=== PATIENT | male | born 1995 | race Caucasian/White ===

== ENCOUNTER 2024-01-24 18:31 | Emergency (ER) | payer SELFPAY ==
[2024-01-24 19:48] LABS: SARS-CoV-2 Antigen CONTROL BLUE LINE VIS/BG OK; SARS-CoV-2 Antigen Rapid Res Negative (Negative)
--- NOTE | 2024-01-24 19:51 | ER ---
Nurse's Notes [facility] Name: Jose Levi Age: 28 yrs Sex: Male : 1995 Arrival Date: 01/24/2024 Time: 18:31 Bed IW2 Private MD: Diagnosis: Acute upper respiratory infection, unspecified Presentation: 01/23 19:15 Chief complaint: Patient states: i think i have strep throat and it started yesterday. bm8 Coronavirus screen: At this time, the client does not indicate any symptoms associated with coronavirus-19. Ebola Screen: No symptoms or risks identified at this time. Initial Sepsis Screen: Does the patient meet any 2 criteria? No. Patient's initial sepsis screen is negative. Does the patient have a suspected source of infection? No. Patient's initial sepsis screen is negative. Risk Assessment: Do you want to hurt yourself or someone else? Patient reports no desire to harm self or others. Onset of symptoms was January 23, 2024. 19:15 Method Of Arrival: Ambulatory bm8 19:15 Acuity: WILNER 4 bm8 Triage Assessment: 19:16 General: Appears in no apparent distress. comfortable, Behavior is calm, cooperative, bm8 appropriate for age. Pain: Complains of pain in throat Pain currently is 3 out of 10 on a pain scale. Quality of pain is described as burning. EENT: Throat is reddened has enlarged tonsils bilaterally with gag reflex present, Reports nasal congestion and sore throat. Neuro: No deficits noted. Cardiovascular: No deficits noted. Respiratory: No deficits noted. GI: No deficits noted. : No deficits noted. Derm: No deficits noted. Musculoskeletal: No deficits noted. Historical: - Allergies: 19:16 No Known Allergies; bm8 - Home Meds: 19:16 None [Active]; bm8 - PMHx: 19:16 None; bm8 - PSHx: 19:16 None; bm8 - Immunization history:: Adult Immunizations unknown. - Infectious Disease History:: Denies. - Social history:: Smoking status: Patient denies any tobacco usage or history of. Screenin:34 [facility] ED Fall Risk Assessment (Adult) History of falling in the last 3 months, bm8 including since admission No falls in past 3 months (0 pts) Confusion or Disorientation No (0 pts) Intoxicated or Sedated No (0 pts) Impaired Gait No (0 pts) Mobility Assist Device Used No (0 pt) Altered Elimination No (0 pt) Score/Fall Risk Level 0 - 2 = Low Risk Oriented to surroundings, Maintained a safe environment, Educated pt \T\ family on fall prevention, incl call for assistance when getting out of bed, Assessed \T\ reinforced patient's understanding of fall precautions, Hourly rounding (assess needs \T\ fall precautionary measures) done, Used ambulatory aids as needed (educated on \T\ assisted with), Used gait belt as appropriate. Abuse screen: Denies threats or abuse. Nutritional screening: No deficits noted. Tuberculosis screening: No symptoms or risk factors identified. Assessment: 19:34 Reassessment: see triage note. Respiratory: Airway is patent Trachea midline bm8 Respiratory effort is even, unlabored, Respiratory pattern is regular, symmetrical. 19:56 Reassessment: Patient appears in no apparent distress at this time. No changes from bm8 previously documented assessment. Patient and/or family updated on plan of care and expected duration. Pain level reassessed. Patient is alert, oriented x 3, equal unlabored respirations, skin warm/dry/pink. 19:57 Respiratory: Breath sounds are clear bilaterally. bm8 Vital Signs: 19:15 BP 107 / 72; Pulse 96; Resp 18; Temp 98.6; Pulse Ox 100% ; Weight 68.04 kg; Height 6 bm8 ft. 0 in. ; Pain 3/10; 19:55 BP 110 / 74; Pulse 95; Resp 17; Temp 98.6; Pulse Ox 100% ; Pain 3/10; bm8 19:15 Body Mass Index 20.34 (68.04 kg, 182.88 cm) bm8 19:15 Pain Scale: Adult bm8 19:55 Pain Scale: Adult bm8 ED Course: 18:35 Patient arrived in ED. mr 18:37 [facility]C [facility] kb 18:37 Silvana Alexander MD is Attending Physician. kb 19:14 Sonu Nolasco, RN is Primary Nurse. bm8 19:16 Triage completed. bm8 19:17 Arm band placed on left wrist. bm8 19:34 Patient has correct armband on for positive identification. Client placed on continuous bm8 cardiac and pulse oximetry monitoring. NIBP monitoring applied. Pulse ox on. NIBP on. 19:34 No provider procedures requiring assistance completed. COVID swab sent to lab. Flu bm8 and/or RSV swab sent to lab. Strep swab sent to lab. Patient did not have IV access during this emergency room visit. 19:56 Provided Education on: post er care. bm8 Administered Medications: No medications were administered Medication: 19:34 VIS not applicable for this client. bm8 Outcome: 19:51 Discharge ordered by . amanda 19:56 Discharged to home ambulatory, bm8 19:56 Condition: stable 19:56 Discharge instructions given to patient, Instructed on discharge instructions, follow up and referral plans. safety practices, Demonstrated understanding of instructions, follow-up care, medications, 19:57 Patient left the ED. bm8 Signatures: Dori Anderson, CURB MACHINE OPERATOR-C CURB MACHINE OPERATOR-Dyan De Luna, Reg Reg Sonu Nolasco, RN RN bm8
--- NOTE | 2024-01-24 19:51 | EDPHYS ---
Physician Documentation [facility] Name: Jose Levi Age: 28 yrs Sex: Male : 1995 Arrival Date: 01/24/2024 Time: 18:31 Bed IW2 Private MD: ED Physician Silvana Alexander HPI: 01/23 18:55 This 28 yrs old Male presents to ER via Unassigned with complaints of Sore Throat, kb Fever, Congestion. 18:55 Pt is a 28 year old male who presents for cough, congestion, subjective fever and sore kb throat that started yesterday and has progressively gotten worse. No alleviating or aggravating factors. . Historical: - Allergies: 19:16 No Known Allergies; bm8 - Home Meds: 19:16 None [Active]; bm8 - PMHx: 19:16 None; bm8 - PSHx: 19:16 None; bm8 - Immunization history:: Adult Immunizations unknown. - Infectious Disease History:: Denies. - Social history:: Smoking status: Patient denies any tobacco usage or history of. ROS: 18:56 Constitutional: As per HPI kb Exam: 18:56 Constitutional: This is a well developed, well nourished patient who is awake, alert, kb and in no acute distress. Head/Face: Normocephalic, atraumatic. Cardiovascular: Regular rate Respiratory: Respirations even and unlabored. No increased work of breathing. Talking in full sentences Skin: Warm, dry with normal turgor. Normal color. MS/ Extremity: Pulses equal, no cyanosis. Neurovascular intact. Full, normal range of motion. Neuro: Awake and alert, GCS 15, oriented to person, place, time, and situation. Moves all extremities. Normal gait. 18:56 ENT: Posterior pharynx: Airway: normal, Tonsils: with erythema, Uvula: normal, midline, erythema, that is moderate, Vital Signs: 19:15 BP 107 / 72; Pulse 96; Resp 18; Temp 98.6; Pulse Ox 100% ; Weight 68.04 kg; Height 6 bm8 ft. 0 in. ; Pain 3/10; 19:55 BP 110 / 74; Pulse 95; Resp 17; Temp 98.6; Pulse Ox 100% ; Pain 3/10; bm8 19:15 Body Mass Index 20.34 (68.04 kg, 182.88 cm) bm8 19:15 Pain Scale: Adult bm8 19:55 Pain Scale: Adult bm8 MDM: 18:37 Patient medically screened. kb 19:50 Differential diagnosis: flu, covid, strep, uri, tonsillitis. Data reviewed: vital kb signs, nurses notes. Counseling: I had a detailed discussion with the patient and/or guardian regarding the historical points, exam findings, and any diagnostic results supporting the discharge/admit diagnosis, lab results, the need for outpatient follow up, a family practitioner, to return to the emergency department if symptoms worsen or persist or if there are any questions or concerns that arise at home. 01/23 18:55 Order name: Flu; Complete Time: 19:48 kb 01/23 18:55 Order name: SARS-COV-2 Antigen Rapid; Complete Time: 19:50 kb 01/23 18:55 Order name: Strep kb 01/23 19:49 Order name: Throat Culture EDMS Administered Medications: No medications were administered Disposition Summary: 01/24/24 19:51 Discharge Ordered Notes: Location: Home kb Condition: Stable kb Diagnosis - Acute upper respiratory infection, unspecified kb Followup: kb - With: Emergency Department - When: As needed - Reason: Worsening of condition Followup: kb - With: Private Physician - When: 2 - 3 days - Reason: Recheck today's complaints, Continuance of care, Re-evaluation by your physician Discharge Instructions: - Discharge Summary Sheet kb - Upper Respiratory Infection, Adult, [id number] kb - Viral Respiratory Infection, [id number] kb Forms: - Medication Reconciliation Form kb - Antibiotic Education kb - Prescription Opioid Use kb - Patient Portal Instructions kb - Leadership Thank You Letter kb Signatures: Dispatcher [employer] EDMS Dori Anderson, PRINTED CIRCUIT BOARD PREASSEMBLER-C PRINTED CIRCUIT BOARD PREASSEMBLER-Sonu Vargas, RN RN bm8 Corrections: (The following items were deleted from the chart) 18:55 18:55 Influenza Screen (A \T\ B)+BA.LAB.BRZ ordered. EDMS EDMS 18:55 18:55 SARS-COV-2 Antigen Rapid+I.LAB.BRZ ordered. EDMS EDMS 18:55 18:55 Group A Streptococcus Rapid Sc+BA.LAB.BRZ ordered. EDMS EDMS
[2024-01-24 20:19] VITALS: TEMP 98.6; O2SAT 100
[2024-01-24 20:20] VITALS: BP 110/74
== END 2024-01-24 19:57 | disposition home or self-care (01) ==
LOC: ER 18:31
DX: J06.9 Acute upper respiratory infection, unspecified (principal); Z11.52 Encounter for screening for COVID-19
CPT/HCPCS: 36415; 87070; 87081; 87804; 87811; 99283